=== PATIENT | male | born 1940 | race Caucasian/White ===

== ENCOUNTER 2024-11-05 07:49 | Outpatient (CLI) | payer MEDICARE, SELFPAY ==
--- NOTE | ~2024-11-05 | PE_ITS ---
EXAMINATION: PET_PETPSMAST_PT DATE: 11/05/2024 10:30 INDICATION: Prostate cancer TECHNIQUE: 4.692 mCi of Illucix [id number]) was administered i.v. Low dose computed sadie graphy (CT) images were acquired from the base of the brain to the base of the brain to the proximal thighs for attenuation correction and anatomic localization. Positron emission tomography (PET) image s were acquired in the same distribution beginning 97 minutes after injection. Images including fused PET/CT images were reconstructed in axial, coronal, and sagittal planes. Automated exposure control technique was employed. The dose-length product was 1301.46mGy-cm. COMPARISON: None FINDINGS: Head/neck: Typical pattern of symmetric physiologic increased activity in the lacrimal, parotid and submandibula r glands as well as along the mucosa of the nasal and oral cavities, pharynx and hypopharynx. No path ologically enlarged cervical lymphadenopathy or suspicious foci of increased uptake in the visualized head or neck. Chest: Mosaic attenuation in the lower lungs without septal line thickening and with volume loss in the lowe r lobes which would be most consistent with dependent atelectasis related to mucoid inspiratory effor t with subsegmental regions of air trapping related to small airway disease. No suspicious pulmonary nodules or pleural effusion. Mild cardiomegaly. Small to moderate-sized pericardial effusion. Vascula r is normal in caliber. No pathologically enlarged or PSMA avid lymphadenopathy. Abdomen/pelvis/proximal thighs: Physiologic renal accumulation and excretion of activity in the kidneys, bladder and along portions o f ureters. Prostatomegaly measuring 5.2 x 4.3 cm. There is a region of relatively intense FDG activit y with maximal SUV of 32.9 within the prostate which is positioned more anterior than would be antici pated for the prostatic urethra and with additional less intense uptake extending posteriorly along t he left side of the prostate which likely represents the reported primary prostate cancer. Normal deg ree and slightly heterogenous pattern of increased uptake throughout the liver and spleen without rad iologic correlate or dominant PSMA avid lesion. The gallbladder, pancreas and bilateral adrenal gland s are normal. Moderate uptake scattered throughout the bowels with typical duodenal and proximal jeju nal predominance and without radiologic correlate, also likely physiologic. No other abnormal foci of increased uptake or pathologically enlarged lymphadenopathy in the abdomen, pelvis or proximal thigh s. Musculoskeletal: L5 spondylolysis with bilateral pars interarticularis defects and 3 mm anterolisthesis L5 on S1. Ther e is moderate spondylosis throughout the spine with bridging osteophytes at multiple levels consisten t with diffuse idiopathic skeletal hyperostosis (DISH). No suspicious lytic, blastic or FDG avid bone lesions. There is some heterotopic ossification in the proximal right thigh situated between the barbie ction of the anterior, posterior and abductor compartments which could represent sequela of chronic t rauma. IMPRESSION: 1. Small region of prominent increased uptake at the anterior and left sides of the enlarged prostate consistent with primary prostate cancer. No evident metastatic disease. 2. Mild cardiomegaly with small to moderate-sized pericardial effusion. Reviewed, dictated and finalized at location B. ST IMPRESSION: 1. Small region of prominent increased uptake at the anterior and left sides of the enlarged prostate consistent with primary prostate cancer. No evident meta static disease. 2. Mild cardiomegaly with small to moderate-sized pericardial effusion.
== END 2024-11-05 07:50 | disposition home or self-care (01) ==
PROVIDERS: Visit Provider Urology
DX: C61 Malignant neoplasm of prostate (principal)
CPT/HCPCS: 78815; A9596